=== PATIENT | female | born 1980 | race African-American/Black ===

== ENCOUNTER 2017-01-04 16:20 | Emergency (ER) | payer SELFPAY ==
[2012-03-31 07:58] VITALS: BMI 21.7
== END 2017-01-04 23:19 | disposition home or self-care (01) ==
LOC: D.ER 16:20
DX: L02.214 Cutaneous abscess of groin (principal)

== ENCOUNTER 2017-02-19 16:10 | Emergency (ER) | payer SELFPAY ==
[2012-03-31 07:58] VITALS: BMI 21.7
[2017-02-19 16:57] LABS: APPEARANCE TURBID (CLEAR); COLOR YELLOW (YELLOW); LEUKOCYTE ESTERASE 2+ (NEGATIVE); NITRITE POSITIVE (NEGATIVE); PROTEIN TRACE mg/dL (NEGATIVE)
[2017-02-19 16:58] LABS: BILIRUBIN 1+ (NEGATIVE); GLUCOSE NEGATIVE (NEGATIVE); KETONE NEGATIVE (NEGATIVE)
[2017-02-19 17:02] LABS: BACTERIA MANY /hpf (NONE SEEN); WHITE CELLS - URINE >50 /hpf (0-5)
[2017-02-19 17:25] LABS: BASOPHILS 0.2 % (0-2); EOSINOPHILS 1.2 % (0-7); HEMATOCRIT 40.2 % (36.0-48.0); IMMATURE GRANULOCYTES 0.3 % (0-5); LYMPHOCYTES 26.6 % (15-50); MCH 28.6 pg (26.0-34.0); MCHC 34.8 g/dL (31.0-37.0); MEAN PLATELET VOLUME 11.8 fL (7.4-10.4); MONOCYTES 6.4 % (2-11); NEUTROPHILS 65.3 % (40-80); PLATELET COUNT 204 10x3/uL (130-400); RDW 14.2 % (11.5-14.5); WBC 14.6 10x3/uL (4.8-10.8)
[2017-02-19 17:41] LABS: ALBUMIN 3.7 g/dL (3.4-5.0); BILIRUBIN - TOTAL 0.33 mg/dL (0.2-1.3); CALCIUM 8.8 mg/dL (8.5-10.1); CREATININE - SERUM 0.9 mg/dL (0.6-1.3); PROTEIN - SERUM 7.1 g/dL (6.4-8.2)
== END 2017-02-19 21:00 | disposition home or self-care (01) ==
LOC: D.ER 16:10
PROVIDERS: Emergency Medicine
DX: N39.0 Urinary tract infection, site not specified (principal); R10.2 Pelvic and perineal pain; Z72.51 High risk heterosexual behavior

== ENCOUNTER 2019-05-04 13:57 | Emergency (ER) | payer SELFPAY ==
[2019-05-04 14:06] VITALS: Ht 172.7 cm
[2019-05-04 14:26] LABS: BASOPHILS 0.2 % (0-2); EOSINOPHILS 0.6 % (0-7); HEMOGLOBIN 13.5 g/dL (12-16); IMMATURE GRANULOCYTES 0.3 % (0-5); LYMPHOCYTES 21.2 % (15-50); MCH 29.4 pg (26.0-34.0); MCHC 36.5 g/dL (31.0-37.0); MCV 80.6 fL (80.0-100.0); MEAN PLATELET VOLUME 11.2 fL (7.4-10.4); MONOCYTES 5.7 % (2-11); PLATELET COUNT 215 10x3/uL (130-400); RBC 4.59 10x6/uL (4.00-5.40); RDW 13.6 % (11.5-14.5); WBC 13.1 10x3/uL (4.8-10.8)
[2019-05-04 14:38] LABS: APTT 28.1 SECONDS (22.8-39.4); INR 1.07 (0.85-1.17); PROTIME 13.4 SECONDS (11.6-15.0)
[2019-05-04 14:39] LABS: ALBUMIN 3.5 g/dL (3.4-5.0); ALKALINE PHOSPHATASE 75 U/L (46-116); ALT (SGPT) 19 U/L (10-68); BILIRUBIN - TOTAL 0.47 mg/dL (0.2-1.3); CALC OSMOLALITY 278 mosm/kg (275-300); CALCIUM 8.4 mg/dL (8.5-10.1); CARBON DIOXIDE 29.2 mmol/L (21.0-32.0); CHLORIDE - SERUM 107 mmol/L (98-107); CREATININE - SERUM 0.8 mg/dL (0.6-1.3); GLUCOSE 99 mg/dL (74-106); POTASSIUM - SERUM 4.1 mmol/L (3.5-5.1); PROTEIN - SERUM 6.7 g/dL (6.4-8.2); SODIUM 141 mmol/L (136-145); UREA NITROGEN 8 mg/dL (7-18); eGFR NON AFRICAN AMERICAN 85 mL/min (90-120)
[2019-05-04 14:50] LABS: CKMB 0.5 U/L (0.0-3.6); CREATINE KINASE 143 UL (21-215); MAGNESIUM - SERUM 1.8 mg/dL (1.8-2.4)
[2019-05-04 14:51] LABS: TROPONIN-I < 0.017 ng/mL (0.000-0.060)
[2019-05-04 15:13] LABS: THYROID STIMULATING HORMONE 1.62 uIU/mL (0.36-3.74)
[2019-05-04] MEDS ORDERED: OMEPRAZOLE20 M1 PO (16:17)
[2019-05-04 17:15] LABS: HELICOBACTER PYLORI IGG NEGATIVE (NEGATIVE)
[2019-05-04 17:18] VITALS: BP 138/80
== END 2019-05-04 17:18 | disposition home or self-care (01) ==
LOC: D.ER 13:57
PROVIDERS: Family Medicine
DX: R07.9 Chest pain, unspecified (principal); K21.9 Gastro-esophageal reflux disease without esophagitis